=== PATIENT | male | born 1950 | race Caucasian/White ===

== ENCOUNTER 2016-12-02 22:35 | Emergency (ER) | payer MEDICARE, OTHER ==
[2016-12-02 22:40] VITALS: TEMP 97.8
[2016-12-02 22:44] VITALS: BMI 29.7
--- NOTE | 2016-12-02 23:02 | EDPRACDOC ---
- General Chief Complaint: Altered Mental Status Stated Complaint: STROKE LIKE SYMPTOMS Time Seen by Provider: 12/02/16 22:48 Information Source: Patient Mode of Arrival:: Car Allergies/Adverse Reactions: Allergies Allergy/AdvReac Type Severity Reaction Status Date / Time No Known Allergies Allergy Verified 12/02/16 22:40 Home Medications: Ambulatory Orders Atorvastatin Calcium 10 mg PO DAILY 12/29/15 Citalopram (anti-depressant) [Celexa] 40 mg PO DAILY 12/29/15 Diazepam [Valium] 5 mg PO BID #10 tablet 12/29/15 Hydrocodone/Acetaminophen [Lortab 5-325 mg Tablet] 1 each PO Q4H PRN #15 tablet 12/29/15 Tamsulosin HCl [Flomax] 0.4 mg PO DAILY 12/29/15 - History of Present Illness Exact Onset of Symptoms: Known Onset: one hour ago Date Symptoms Started: 12/02/16 Time Symptoms Started: 21:30 Symptoms Started: Reports: Suddenly, At Rest Symptoms: Reports: Other (CONFUSION) Symptoms Description: Improved Associated Symptoms: Reports: Confusion. Denies: Fever/Chills, Nausea/Vomiting HPI: PT PRESENTS WITH 30 MINUTE PERIOD OF CONFUSION FROM 2130 TO 2200. HE IS CURRENTLY HOLDING HIS ASPIRIN IN PREPARATION FOR A COLONOSCOPY IN A FEW DAYS. ED Past Medical History - History Reviewed Yes Nurses notes reviewed and agree except as marked - Patient Medical History Cardiac History: Reports: Hypercholesterolemia, Valvular Heart Disease Surgical History: Reports: Hernia Surgery, Other (MITRAL VALVE REPAIR) - Family Medical History Reports: Cancer - Social Medical History Smoking Status: Former smoker (QUIT 1974) Lives In: Home EDM Review of Systems - Review of Systems ROS Negative Except as Marked: Yes All systems reviewed and were negative except as marked Constitutional: negative: Fever Respiratory: negative: Shortness of Breath Cardiovascular: negative: Chest Pain Gastrointestinal: negative: Nausea, Pain, Vomiting Neurological: Other (TRANSIENT CONFUSION. COULD NOT FIGURE OUT WHERE HIS DAUGHTER WAS WHILE ON THE PHONE WITH HER.). negative: Headache, Weakness - Physical Exam Constitutional: Alert Oriented to: Time, Person, Place Last recorded Vital Signs: Last Vital Signs Temp 97.8 F 12/02/16 22:39 Pulse 82 12/02/16 22:39 Resp 20 12/02/16 22:39 BP 156/86 12/02/16 22:39 Pulse Ox 96 12/02/16 22:39 Oxygen Pulse Oxygen Saturation 96 O2 Device Oxygen Flow Rate Fraction of Inspired Oxygen ( FIO2) - HEENT Head: negative: Deformity, Laceration Eye Exam: negative: Conjunctival Injection, Pale Conjunctiva Oropharynx: negative: Membranes Dry Nose: negative: Congestion, Discharge Neck: negative: Limited ROM - Respiratory/Cardiovascular Respiratory: Normal - CTA. negative: Accessory Muscle Use, Diminished, Tachypnea Cardiovascular: negative: Bradycardia, Tachycardia, Irregular - GI Auscultation: Normal Palpation: Normal Tenderness: Non tender - Integumentary Skin: Warm, Dry. negative: Rash - Neurologic Memory Impaired: Normal Motor Function: Normal Mood Description: Anxious, Appropriate Thought: Coherent Perception: Normal NIH Stroke Scale Initial Evaluation Level of Consciousness: Alert LOC- Question: Answers Both Correctly LOC Commands: Both Task Correctly Best Gaze: Normal Visual: No Visual Loss Facial Palsy: Normal Movement Motor Arm LEFT: No Drift Motor Arm RIGHT: No Drift Motor Leg LEFT: No Drift Motor Leg RIGHT: No Drift Limb Ataxia: Absent Sensory: Normal Best Language: No Aphasia Dysarthria: Normal Extinction and Inattention: No Abnormality (Neglect) Score: 0out [id number] - Results 12/02/16 23:15 12/02/16 23:15 Decision Time to Discharge: 03:08 - Departure Yes I personally saw and evaluated the patient. Disposition: Home Condition: Stable Final Diagnosis: TIA (transient ischemic attack) Instructions: Transient Ischemic Attack (ED) Education/Counseling Given To: Patient, Family Member Education/Counseling Given Regarding: Diagnosis, Treatment, Prognosis, Follow Up Referrals: Dk Collado MD [Primary Care Provider] - Call for Appointment Additional Instructions: PLEASE TAKE A DAILY ASPIRIN TO DECREASE YOUR STROKE RISK.
[2016-12-02 23:34] LABS: AUTOMATED BASOPHIL 0.5 % (0-2); AUTOMATED EOSINOPHIL 5.6 % (0-5); AUTOMATED LYMPH 31.7 % (17-44); AUTOMATED MONOCYTE 9.9 % (3-10); AUTOMATED NEUTROPHIL 52.3 % (45-76); MPV 7.8 fL (7.4-10.4)
[2016-12-02 23:40] LABS: PARTIAL THROMB. TIME 21.9 SEC (22-35)
[2016-12-02 23:52] LABS: BLOOD UREA NITROGEN 20 MG/DL (9-20); CALC CORRECTED 9.1 MG/DL (8.4-10.2); CALCIUM 8.9 MG/DL (8.4-10.2); CALCULATED OSMOLALITY 271 MOs/Kg (270-290); CHLORIDE 104 mEq/L (98-107); GLUCOSE 106 MG/DL (70-99); SODIUM LEVEL 139 mEq/L (137-146); TOTAL PROTEIN 6.7 G/DL (6.3-8.2)
--- NOTE | 2016-12-03 | DIRPT ---
CLINICAL DATA: Confusion. Recent vertigo EXAM: CT HEAD WITHOUT CONTRAST TECHNIQUE: Contiguous axial images were obtained from the base of the skull through the vertex without intravenous contrast. COMPARISON: Report maxillofacial CT dated from 11/19/2003 FINDINGS: The brainstem, cerebellum, cerebral peduncles, thalami, basal ganglia, basilar cisterns, and ventricular system appear within normal limits. No intracranial hemorrhage, mass lesion, or acute CVA. Periventricular white matter and nix radiata hypodensities favor chronic ischemic microvascular white matter disease. Mild chronic ethmoid sinusitis. Mild chronic left sphenoid sinusitis. IMPRESSION: 1. Mild chronic ethmoid and sphenoid sinusitis. 2. No acute intracranial findings. 3. Periventricular white matter and nix radiata hypodensities favor chronic ischemic microvascular white matter disease. Electronically Signed By: Doni Rojas M.D. On: 12/02/2016 23:58
--- NOTE | 2016-12-03 00:21 | DIRPT ---
CLINICAL DATA: Acute onset of confusion. Initial encounter. EXAM: CHEST 2 VIEW COMPARISON: Chest radiograph performed 12/29/2015 FINDINGS: The lungs are well-aerated. There is elevation of the right hemidiaphragm, with mild right basilar atelectasis. There is no evidence of pleural effusion or pneumothorax. The heart is borderline normal in size. A mitral valve replacement is noted. Postoperative change is seen overlying the right hilum. No acute osseous abnormalities are seen. IMPRESSION: Elevation of the right hemidiaphragm, with mild right basilar atelectasis. Electronically Signed By: Jaxson Urbina M.D. On: 12/03/2016 00:19
[2016-12-03 00:53] LABS: LEUKOCYTES/URINE NEG (NEGATIVE); NITRITE/URINE NEG (NEGATIVE); URINE OCCULT BLOOD NEG (NEG/TRACE)
[2016-12-03 03:14] VITALS: BP 125/75; PULSE 87
== END 2016-12-03 03:19 | disposition home or self-care (01) ==
LOC: ED 22:35
DX: G45.9 Transient cerebral ischemic attack, unspecified (principal)
CPT/HCPCS: 36415; 70450; 71020; 80053; 81001; 84484; 85025; 85610; 85730; 93005; 99284